=== PATIENT | female | born 1990 | race Caucasian/White ===

== ENCOUNTER 2017-06-01 14:48 | Emergency (ER) | payer MEDICARE ==
[~2017-06-01] VITALS: Ht 170.2 cm; Wt 103.9 kg
[2017-06-01] MEDS ORDERED: VALIUM5 MG PO (14:58)
[2017-06-01] MEDS ORDERED: KEPPRA750 MG PO (14:58)
[2017-06-01] MEDS ORDERED: VIMPAT200 MG PO (14:58)
[2017-06-01] MEDS ORDERED: VENTOLIN HFA18 GM INH (14:59)
[2017-06-01] MEDS ORDERED: PHENERGAN50 MG PO (14:59)
== END 2017-06-01 17:54 | disposition home or self-care (01) ==
LOC: ED 14:48
DX: S46.911A Strain of unspecified muscle, fascia and tendon at shoulder and upper arm level, right arm, initial encounter (principal); G93.81 Temporal sclerosis; G40.909 Epilepsy, unspecified, not intractable, without status epilepticus; F17.200 Nicotine dependence, unspecified, uncomplicated; Z88.6 Allergy status to analgesic agent; Z88.8 Allergy status to other drugs, medicaments and biological substances; Z88.5 Allergy status to narcotic agent; W19.XXXA Unspecified fall, initial encounter
CPT/HCPCS: 73030; 80053; 82542; 84703; 85025; 96374; 99284; J2405